=== PATIENT | male | born 1995 | race Caucasian/White ===

== ENCOUNTER 2017-02-10 16:13 | Emergency (ER) | payer OTHER, BC ==
[~2017-02-10] VITALS: Ht 182.9 cm; Wt 92.5 kg
[2017-02-10 16:25] VITALS: Ht 182.9 cm; Wt 92.5 kg
[2017-02-10] MEDS ORDERED: LIDOCAINE 1% (MDV) 10 ML INJ INJ STA (17:53)
[2017-02-10] MEDS ORDERED: DIPHTH/TET/ACEL PERTUSS (ADULT) 0.5 ML VIAL IM ONE (18:00)
--- NOTE | 2017-02-10 18:16 | ERD ---
ER Documentation Chief Complaint Date/Time DATE: 02/10/17 TIME: 18:14 Chief Complaint Lac/scratch on face/lip x today scratched by cat HPI 21-year-old male, previously healthy, presents to the emergency department complaining of an open wound of his upper lip on the left side, pain and active bleeding, after being scratched by his cat. The cat is an indoor cat with vaccines up-to-date. ROS All systems reviewed and are negative except as per history of present illness. Medications Home Meds Active Scripts Lidocaine (Lidocaine Viscous) 100 Ml Soln, 2 ML MM TID for 5 Days Prov:SURJIT PERSON MD 02/10/17 Amoxicillin/Potassium Clav (Amox-Clav 875-125 mg Tablet) 875-125 mg Tab, 1 TAB PO BID for 7 Days, #14 TAB Prov:SURJIT PERSON MD 02/10/17 Allergies Allergies: Coded Allergies: No Known Allergy (Unverified , 02/10/17) PMhx/Soc Medical and Surgical Hx: pt denies Medical Hx, pt denies Surgical Hx Hx Alcohol Use: Yes (03/30/14) Hx Substance Use: No Hx Tobacco Use: Yes Smoking Status: Current every day smoker Physical Exam Vitals Vital Signs Date Time Temp Pulse Resp B/P Pulse Ox O2 Delivery O2 Flow Rate FiO2 02/10/17 16:25 98.1 71 18 129/88 99 Physical Exam Const: [] Head: Atraumatic Skin: 1.5 cm linear lac on upper lip on the left side which extends to 2cm superficial abrasion. Results 24 hrs Current Medications Medications (Trade) Dose Ordered Sig/Jeremy Route PRN Reason Start Time Stop Time Status Last Admin Dose Admin Diphtheria/ Tetanus/Acell Pertussis (Adacel) 0.5 ml ONCE ONCE IM 02/10/17 18:00 02/10/17 18:01 DC Lidocaine HCl (Lidocaine 1% (Mdv) 10 ml) 10 ml ONCE STAT INJ 02/10/17 17:53 02/10/17 17:55 DC Procedures/MDM Laceration Repair by me: Anesthesia: 1% lidocaine withoutepinephrine locally Location: upper lip Tendon/Joint/Nerves: No injury Foreign body: None detected after copious irrigation and exploration Technique: Simple Interrupted Sutures Complexity: No subcutaneous sutures/mucosal repair/ edge excision Post Closure Length: 1.5 cm Patient's bleeding was easily controlled in the department and there is no indication of anemia. No evidence of compartment syndrome, neurologic injury, vascular injury, open joint, tendon laceration, or foreign body. Patient is appropriate for outpatient follow up. 48 hour wound check. Scar minimization instructions given. Departure Diagnosis: Primary Impression: Open wound of face without complication Additional Impression: Cat scratch of face Condition: Stable SURJIT PERSON MD Feb 10, 2017 18:16
[2017-02-10] MEDS ORDERED: LIDO20SO19 MM (18:20)
[2017-02-10] MEDS ORDERED: AMOX1TAB10 PO (18:20)
== END 2017-02-10 18:37 | disposition home or self-care (01) ==
LOC: FTE 16:13
DX: S01.501A Unspecified open wound of lip, initial encounter (principal); F17.210 Nicotine dependence, cigarettes, uncomplicated; W55.03XA Scratched by cat, initial encounter; Y92.9 Unspecified place or not applicable
CPT/HCPCS: 90471; 90715

== ENCOUNTER 2018-04-27 11:18 | Emergency (ER) | payer BC, OTHER ==
[~2018-04-27] VITALS: Wt 103.7 kg
[~2018-04-27 11:18] MED LIST: AMOX1TAB10 PO; LIDO20SO19 MM
[2018-04-27 11:22] VITALS: BP 140/79; PULSE 83; RESP 17
[2018-04-27] MEDS ORDERED: KETOROLAC 60 MG INJ IM STA (12:31)
[2018-04-27] MEDS ORDERED: IBUP-1542 PO (12:33)
--- NOTE | 2018-04-27 12:42 | ERD ---
ER Documentation Chief Complaint Chief Complaint LOW BACK PAIN X3 DAYS, NO INJURY HPI 22-year-old male with past medical history of bilateral lower back pain presents with history of back pain for 3 days. Patient states that he woke up 3 days ago and his back was hurting him. 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 Only taking 2 Advil's a day. Denies acute trauma, saddle numbness, incontinence, night sweats, weight loss, dysuria, weakness, numbness, or tingling. History of lower back pain. Denies allergies to medications. Denies surgeries. Denies alcohol, drug, or tobacco use. Up to date on vaccinations. ROS All systems reviewed and are negative except as per history of present illness. Medications Home Meds Active Scripts Ibuprofen* (Motrin*) 600 Mg Tab, 600 MG PO Q6 for pain, #30 TAB 0 Refills Prov:ELISEO GONG 04/27/18 Lidocaine (Lidocaine Viscous) 100 Ml Soln, 2 ML MM TID for 5 Days Prov:SURJIT PERSON MD 02/10/17 Amoxicillin/Potassium Clav (Amox-Clav 875-125 mg Tablet) 875-125 mg Tab, 1 TAB PO BID for 7 Days, #14 TAB Prov:SURJIT PERSON MD 02/10/17 Allergies Allergies: Coded Allergies: No Known Allergy (Unverified , 02/10/17) PMhx/Soc Medical and Surgical Hx: pt denies Medical Hx, pt denies Surgical Hx Hx Alcohol Use: Yes (socially) Hx Substance Use: Yes (socally) Hx Tobacco Use: Yes (one stick a day) Smoking Status: Never smoker FmHx Family History: No diabetes, No coronary disease, No other Physical Exam Vitals Vital Signs Date Temp Pulse Resp B/P (MAP) Pulse Ox O2 O2 Flow FiO2 Time Delivery Rate 04/27/18 97.6 83 17 140/79 97 11:22 (99) Physical Exam Const: No acute distress Resp: Clear to auscultation bilaterally Cardio: Regular rate and rhythm, no murmurs Back: Normal flexion. Limited extension. Limited rotation. No midline or flank tenderness. No bony deformities or step offs. No masses, ecchymoses, or lesions noted. Extremeties: Intact sensation and 5/5 strength in lower extremities bilaterally. Neuro: No saddle numbness. Psych: Normal Mood and Affect Results 24 hrs Current Medications Medications Dose Sig/Jeremy Start Time Status Last (Trade) Ordered Route PRN Stop Time Admin Dose Reason Admin Ketorolac 60 mg ONCE STAT 04/27/18 DC 04/27/18 Tromethamine IM 12:31 12:38 (Toradol) 04/27/18 12:33 Procedures/MDM ER Course: Patient given Toradol IM. MDM: 22-year-old male with past medical history of bilateral lower back pain presents with history of back pain for 3 days. Patient states that he woke up 3 days ago and his back was hurting him. 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 Only taking 2 Advil's a day.I have low suspicion for epidural abscess, cauda equina, pyelonephritis, aortic dissection, AAA, spine fracture, or other emergent conditions based on patient history and exam findings. Findings consistent with muscle strain. Patient given Toradol IM and discharged with rx for ibuprofin. Patient discharged with strict ER precautions. Patient advised to follow up with PMD. All questions answered at discharge. Departure Diagnosis: Primary Impression: Back pain Back pain location: low back pain Chronicity: acute Back pain laterality: bilateral Sciatica presence: without sciatica Qualified Codes: M54.5 - Low back pain Condition: Stable Patient Instructions: Back Pain (Acute Or Chronic) Referrals: [facility] Hours: Mon-Fri 9:00 AM - 5:00 PM Additional Instructions: FOLLOW UP WITH YOUR PRIMARY CARE PHYSICIAN TOMORROW.Return to this facility if you are not improving as expected. Also follow up with orthopedist. ELISEO GONG Apr 27, 2018 12:42
== END 2018-04-27 13:00 | disposition home or self-care (01) ==
LOC: FTE 11:18
DX: M54.5 Low back pain (principal)
CPT/HCPCS: 96372; J1885; Z7502